=== PATIENT | male | born 2000 | race Caucasian/White ===

== ENCOUNTER 2025-08-30 09:55 | Outpatient (CLI) | payer OTHER, BC | END 2025-08-30 09:56 | disposition home or self-care (01) | LOC: CSHMRI 09:55 | PROVIDERS: ATTEND Orthopaedic Surgery | DX: M25.561 Pain in right knee (principal); M23.611 Other spontaneous disruption of anterior cruciate ligament of right knee; S83.211A Bucket-handle tear of medial meniscus, current injury, right knee, initial encounter; M25.461 Effusion, right knee ==